=== PATIENT | male | born 1995 | race Caucasian/White ===

== ENCOUNTER 2017-10-02 16:29 | Emergency (ER) | payer OTHER ==
[2017-10-02 16:38] VITALS: BP 116/70
[2017-10-02] MEDS ORDERED: Al Hydrox/Mg Hydrox/Simet LIQ* 30 ML UDC PO ONE (16:59)
[2017-10-02] MEDS ORDERED: Lidocaine 2% VISCOUS* 15 ML UDC PO ONE (17:00)
--- NOTE | 2017-10-02 17:09 | UC ---
Cardiac HPI - HPI Summary HPI Summary: Pt c/o sudden onset of chest pain that ike after vomiting last night. Pt reports that yesterday that he drank a cup of coffee, then went and worked out, then ate a chicken submarine sandwich, had sudden onset of abdominal pain , so , he forced himself to vomit, then he states his abdomen and chest began to hurt worse. The pain is not reproducible, it is constant, worsens with position change, pain lessen while lying down. Denies,fever, chills, some nausea, no diarrhea, - History of Current Complaint Hx Obtained From: Patient Onset/Duration: Sudden Onset, Still Present Timing: Constant Initial Severity: Moderate Current Severity: Moderate Pain Intensity: 7 Chest Pain Location: Left Anterior Character: Dull/Aching, Tightness Aggravating Factor(s): Position, Movement, Deep Breaths Alleviating Factor(s): Nothing Associated Signs & Symptoms: Positive: Chest Pain - Risk Factors Pulmonary Embolism Risk Factors: Negative Cardiac Risk Factors: Negative Atrial Fibrillation: Negative TAD Risk Factors: Negative <Briseida Roy NP - Last Filed: 10/02/17 17:49> <Aimee Quiroga - Last Filed: 10/02/17 18:05> - History of Current Complaint Chief Complaint: UCChestPain Stated Complaint: CHEST PAIN Time Seen by Provider: 10/02/17 16:46 - Allergy/Home Medications Allergies/Adverse Reactions: Allergies Allergy/AdvReac Type Severity Reaction Status Date / Time No Known Allergies Allergy Verified 10/02/17 16:38 Home Medications: Home Medications NK [No Home Medications Reported] 10/02/17 [History Confirmed 10/02/17] PMH/Surg Hx/FS Hx/Imm Hx Previously Healthy: Yes Other History Of: Negative For: HIV, Hepatitis B, Hepatitis C - Surgical History Surgical History: Yes Surgery Procedure, Year, and Place: LEFT ELBOW FX 2009 [place]. RIGHT WRIST FX SURGERY - Family History Known Family History: Negative: Cardiac Disease, Hypertension - Social History Occupation: Employed Full-time Lives: With Family Alcohol Use: Occasionally Substance Use Type: None Smoking Status (MU): Never Smoked Tobacco Have You Smoked in the Last Year: No Household Exposure Type: Cigarettes <Briseida Roy NP - Last Filed: 10/02/17 17:49> Review of Systems Constitutional: Fatigue Skin: Negative Eyes: Negative ENT: Negative Respiratory: Negative Cardiovascular: Chest Pain Gastrointestinal: Abdominal Pain, Vomiting, Nausea Genitourinary: Negative Motor: Negative Neurovascular: Negative Musculoskeletal: Negative Neurological: Negative Psychological: Negative Is Patient Immunocompromised?: No All Other Systems Reviewed And Are Negative: Yes <Briseida Roy NP - Last Filed: 10/02/17 17:49> Physical Exam Triage Information Reviewed: Yes Appearance: Pain Distress Vital Signs: Initial Vital Signs Temp 98.1 F 10/02/17 16:34 Pulse 91 10/02/17 16:34 Resp 18 10/02/17 16:34 BP 116/70 10/02/17 16:34 Pulse Ox 99 10/02/17 16:34 Vital Signs Reviewed: Yes Eye Exam: Normal ENT Exam: Normal Dental Exam: Normal Neck exam: Normal Respiratory Exam: Normal Cardiovascular Exam: Normal Abdominal Exam: Other Abdomen Description: Positive: Other: - generalized tenderness, Musculoskeletal Exam: Normal Neurological Exam: Normal Psychological Exam: Normal Skin Exam: Normal <Briseida Roy NP - Last Filed: 10/02/17 17:49> Vital Signs: Initial Vital Signs Temp 98.1 F 10/02/17 16:34 Pulse 91 10/02/17 16:34 Resp 18 10/02/17 16:34 BP 116/70 10/02/17 16:34 Pulse Ox 99 10/02/17 16:34 <Aimee Quiroga - Last Filed: 10/02/17 18:05> - Assessment/Plan Course Of Treatment: Pt was given maalox and viscous lidcaine at clinic, pt stated that his pain in chest has resolved and pain in abdomen has improved. I disussed with the pt the need to eat regulary and maintain hydration. I also discussed with the pt that if his symptoms worsens to seek care immediately at the closest emergency room. - Differential Diagnoses - Chest Pain Differential Diagnosis/HQI/PQRI: ACS, Angina - Differential Diagnoses - Palpitations Differential Diagnosis/HQI/PQRI: Pericarditis - Clinical Impression Provider Diagnoses: chest pain. abdominal pain <Briseida Roy NP - Last Filed: 10/02/17 17:49> Discharge - Sign-Out/Discharge Documenting (check all that apply): Discharge/Admit/Transfer - Billing Disposition and Condition Condition: STABLE Disposition: HOME <Briseida Roy NP - Last Filed: 10/02/17 17:49> - Billing Disposition and Condition Condition: STABLE Disposition: HOME <Aimee Quiroga - Last Filed: 10/02/17 18:05> - Discharge Plan Condition: Stable Disposition: HOME Patient Education Materials: Antacid, Calcium Containing (By mouth), Chest Pain (ED), Abdominal Pain (ED) Referrals: [facility] [place] [facility] [Outside] No Primary Care Phys,NOPCP [Medical Doctor] - Attestation Statement User Type: Provider - I was available for consult. This patient was seen by the [facility]. The patient was not presented to, seen by, or examined by me. -Constance <Aimee Quiroga - Last Filed: 10/02/17 18:05>
== END 2017-10-02 17:52 | disposition home or self-care (01) ==
LOC: UCCORT 16:29
DX: R07.9 Chest pain, unspecified (principal); R10.9 Unspecified abdominal pain
CPT/HCPCS: 93005; 99212; A9270-GY; G0463

== ENCOUNTER 2018-06-15 13:46 | Emergency (ER) | payer OTHER ==
[2018-06-15 14:40] VITALS: BP 130/59
--- NOTE | 2018-06-15 14:44 | UC ---
Back Pain HPI - HPI Summary HPI Summary: 1. c/o low back pain x 1 month. he thinks it may be from being seated in his car to and from work for 3 hours daily then standing while at work. he denies hx of injury and states " I work out at the gym all the time". 2. "I dislocated my left pinky" on monday( 4 days ago) while playing basketball. He put it back in place but has ongoing pain, swelling and the finger looks crooked. also, finger continues to pop. - History of Current Complaint Chief Complaint: UCUpperExtremity Stated Complaint: LEFT SMALL FINGER INJURY/RIGHT LOWER BACK PAIN Time Seen by Provider: 06/15/18 14:34 Hx Obtained From: Patient Pain Intensity: 4 Associated Signs And Symptoms: Negative: Fever, Weakness, Numbness, Tingling, Abdominal Pain, Flank Pain, Bladder Incontinence, Bowel Incontinence - Risk Factors AAA Risk Factors: Negative TAD Risk Factors: Negative Cauda Equina Risk Factors: Negative - Allergies/Home Medications Allergies/Adverse Reactions: Allergies Allergy/AdvReac Type Severity Reaction Status Date / Time mold Allergy Congestion Verified 06/15/18 14:30 dust Allergy Congestion Uncoded 06/15/18 14:30 PMH/Surg Hx/FS Hx/Imm Hx Previously Healthy: Yes Other History Of: Negative For: HIV, Hepatitis B, Hepatitis C - Surgical History Surgical History: Yes Surgery Procedure, Year, and Place: LEFT ELBOW FX 2008 [place]. RIGHT WRIST FX SURGERY - Family History Known Family History: Negative: Cardiac Disease, Hypertension - Social History Occupation: Employed Full-time Alcohol Use: Occasionally Substance Use Type: None Smoking Status (MU): Never Smoked Tobacco Type: eCigarettes Have You Smoked in the Last Year: No Household Exposure Type: Cigarettes - Immunization History Vaccination Up to Date: Yes Review of Systems All Other Systems Reviewed And Are Negative: Yes Constitutional: Positive: Negative Skin: Positive: Negative Eyes: Positive: Negative ENT: Positive: Negative Respiratory: Positive: Negative Cardiovascular: Positive: Negative Gastrointestinal: Positive: Negative Genitourinary: Positive: Negative Neurological: Positive: Negative Psychological: Positive: Negative Is Patient Immunocompromised?: No Physical Exam Triage Information Reviewed: Yes Appearance: Well-Appearing Vital Signs: Initial Vital Signs Temp 97.5 F 06/15/18 14:25 Pulse 74 06/15/18 14:25 Resp 18 06/15/18 14:25 BP 130/59 06/15/18 14:25 Pulse Ox 99 06/15/18 14:25 Vital Signs Reviewed: Yes Eyes: Positive: Conjunctiva Clear ENT: Positive: Normal ENT inspection Neck: Positive: Supple, Nontender, No Lymphadenopathy Respiratory: Positive: Lungs clear, Normal breath sounds Cardiovascular: Positive: RRR, No Murmur Abdomen Description: Positive: Nontender, No Organomegaly, Soft. Negative: Distended, Guarding, Pulsatile Mass Bowel Sounds: Positive: Present Musculoskeletal: Positive: Other: - L hand: 5th finger with purple bruising and mild swelling plus tender with limited ROM. Gross s/v is intact. rest of hand atraummatic. Back: Tender over low lumbar region plus sacral junction. MM spasm L paraspinal MM lower lumbar region. Rest of back non tender and ROm intact throughout. 5/5 strength, 2+ reflexes and sensation intact x4. No saddle anesthesia. Steady gait. No rash or pilonidal cyst. Neurological: Positive: Alert Psychological: Positive: Age Appropriate Behavior Skin Exam: Normal Skin: Negative: Rashes Diagnostics - Radiology No standard instances Radiology Interpretation Completed By: Radiologist - hand=nad. lumbarsacral= mild scoliosis(see reports) Back Pain Course/Dx - Course Course Of Treatment: xray results d/w pt. he has seen Dr Chadwick in past and will f/u there - Differential Dx/Diagnosis Differential Diagnosis/HQI/PQRI: Other - Back: no concern for fx, dislocation, infection, cauda equina or acute abdomen. finger=no fx or dislocatiopn. Provider Diagnosis: Low back pain, Sprain of finger, left Discharge - Sign-Out/Discharge Documenting (check all that apply): Patient Departure All imaging exams completed and their final reports reviewed: Yes - Discharge Plan Condition: Stable Disposition: HOME Prescriptions: Cyclobenzaprine TAB* [Flexeril 10 MG TAB*] 10 mg PO TID PRN #10 tab PRN Reason: Pain - Back Naproxen [Naprosyn 500 mg tab] 500 mg PO BID 5 Days #10 tablet Patient Education Materials: Finger Sprain (ED), Back Pain (ED), Splint Care ( ED) Referrals: Hermann Eldridge MD [Medical Doctor] - 5 Days Additional Instructions: SPLINT ON FINGER UNTIL CLEARED. AVOID GYM/WORKING OUT UNTIL BACK IS BETTER. - Billing Disposition and Condition Condition: STABLE Disposition: Home
[2018-06-15] MEDS ORDERED: Ibuprofen ADULT LIQ* 600 MG/30 ML UDC PO ONE (14:47)
== END 2018-06-15 16:05 | disposition home or self-care (01) ==
LOC: UCCORT 13:46
DX: S60.052A Contusion of left little finger without damage to nail, initial encounter (principal); S63.617A Unspecified sprain of left little finger, initial encounter; M54.5 Low back pain; Z77.22 Contact with and (suspected) exposure to environmental tobacco smoke (acute) (chronic); Z91.09 Other allergy status, other than to drugs and biological substances; X50.9XXA Other and unspecified overexertion or strenuous movements or postures, initial encounter; Y93.67 Activity, basketball; Y92.9 Unspecified place or not applicable
CPT/HCPCS: 72110; 73140; 99212; A9270-GY; G0463

== ENCOUNTER 2018-08-13 15:56 | Emergency (ER) | payer OTHER ==
[2018-08-13 18:05] VITALS: BP 117/73
--- NOTE | 2018-08-13 18:27 | UC ---
Lower Extremity/Ankle HPI - HPI Summary HPI Summary: Patient stepped on a broken glass last evening. He is unsure as his last tetanus immunization. He states he doesn't feel like there is any foreign body in that foot that 8:00 last evening and patient states he did not seek treatment because he was tired.. - History of Current Complaint Chief Complaint: UCLowerExtremity Stated Complaint: RIGHT FOOT INJURY Time Seen by Provider: 08/13/18 18:19 Hx Obtained From: Patient Onset/Duration: Sudden Onset Severity Initially: Moderate Severity Currently: Mild Pain Intensity: 0 Aggravating Factor(s): Ambulation Alleviating Factor(s): Rest Able to Bear Weight: Yes - Allergies/Home Medications Allergies/Adverse Reactions: Allergies Allergy/AdvReac Type Severity Reaction Status Date / Time mold Allergy Congestion Verified 08/13/18 18:03 dust Allergy Congestion Uncoded 08/13/18 18:03 Home Medications: Home Medications NK [No Home Medications Reported] 08/13/18 [History Confirmed 08/13/18] PMH/Surg Hx/FS Hx/Imm Hx Previously Healthy: Yes Other History Of: Negative For: HIV, Hepatitis B, Hepatitis C - Surgical History Surgical History: Yes Surgery Procedure, Year, and Place: LEFT ELBOW FX 2008 [place]. RIGHT WRIST FX SURGERY - Family History Known Family History: Negative: Cardiac Disease, Hypertension - Social History Alcohol Use: Occasionally Substance Use Type: None Smoking Status (MU): Never Smoked Tobacco Type: eCigarettes Have You Smoked in the Last Year: No Household Exposure Type: Cigarettes - Immunization History Vaccination Up to Date: Yes Review of Systems All Other Systems Reviewed And Are Negative: Yes Skin: Positive: Other - Approximately 2.0 cm laceration at the base of the right great toe. No active bleeding. Physical Exam Triage Information Reviewed: Yes Appearance: Well-Appearing, No Pain Distress, Well-Nourished Vital Signs: Initial Vital Signs Temp 98.8 F 08/13/18 18:03 Pulse 69 08/13/18 18:03 Resp 16 08/13/18 18:03 BP 117/73 08/13/18 18:03 Pulse Ox 100 08/13/18 18:03 Vital Signs Reviewed: Yes Musculoskeletal Exam: Normal Musculoskeletal: Positive: Strength Intact, ROM Intact - Good peripheral pulses neuro sensation and capillary refill. Neurological Exam: Normal Neurological: Positive: Alert, Muscle Tone Normal Psychological Exam: Normal Skin: Positive: Other - Approximately 2.0 cm laceration at the base of the great toe. No active bleeding. Lower Extremity Course/Dx - Course Course Of Treatment: Has been comfortable here. The x-ray according to myself does not show any foreign body present. The wound itself is clean. A dry sterile bulky bacitracin dressing is applied. He's to watch for signs of infection which were reviewed with him. He may return here or follow-up with his primary care provider as needed. 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 - Differential Dx/Diagnosis Provider Diagnosis: Laceration of foot Discharge - Sign-Out/Discharge Documenting (check all that apply): Patient Departure All imaging exams completed and their final reports reviewed: No - Discharge Plan Condition: Good Disposition: HOME Patient Education Materials: Laceration (DC) Referrals: No Primary Care Phys,NOPCP [Primary Care Provider] - Additional Instructions: Please call [facility] at [phone] to get help establishing care with a primary care provider. At this point in time there is no foreign body or piece of glass visualized in her foot. Change dressing daily. Watch for signs of infection such as red streaks, pus drainage, swelling, fever, increased tenderness, increased pain. Definite follow-up with her primary care provider or return here if you have symptoms of infection. - Billing Disposition and Condition Condition: GOOD Disposition: Home
--- NOTE | 2018-08-14 08:21 | UC ---
- Progress Note Progress Note: xray report right foot: FINDINGS: There is a small soft tissue defect present medial to the proximal phalanx of the great toe. No radiopaque foreign body is seen. The bones are normal alignment. No fracture is seen. IMPRESSION: NO RADIOPAQUE FOREIGN BODY IS SEEN. Course/Dx - Diagnoses Provider Diagnoses: Laceration of foot Discharge - Sign-Out/Discharge Documenting (check all that apply): Patient Departure All imaging exams completed and their final reports reviewed: Yes - Discharge Plan Condition: Good Disposition: HOME Patient Education Materials: Laceration (DC) Forms: *Work Release Referrals: No Primary Care Phys,NOPCP [Primary Care Provider] - Additional Instructions: Please call [facility] at [phone] to get help establishing care with a primary care provider. At this point in time there is no foreign body or piece of glass visualized in her foot. Change dressing daily. Watch for signs of infection such as red streaks, pus drainage, swelling, fever, increased tenderness, increased pain. Definite follow-up with her primary care provider or return here if you have symptoms of infection. - Billing Disposition and Condition Condition: GOOD Disposition: Home
== END 2018-08-13 19:26 | disposition home or self-care (01) ==
LOC: UCCORT 15:56
DX: S91.311A Laceration without foreign body, right foot, initial encounter (principal); Z91.09 Other allergy status, other than to drugs and biological substances; W25.XXXA Contact with sharp glass, initial encounter; Y92.9 Unspecified place or not applicable
CPT/HCPCS: 99212; G0463

== ENCOUNTER 2019-01-22 15:23 | Emergency (ER) | payer OTHER ==
[2019-01-22 15:47] VITALS: BP 119/81
--- NOTE | 2019-01-22 16:07 | ED ---
Back Pain - HPI Summary HPI Summary: 23 yr old male with the complaint of low back pain. Onset 6-7 month ago. He states he had plain films that showed scoliosis, was referred for PT and has been doing the PT but his back is hurting more, and he is getting pain down the right lateral and posterior leg now. He denies bowel or bladder incontinence. He has pain that is 6/10 in low back. No numbness or weakness in the legs. He has no falls or injuries otherwise. he denies having any acute problems with his wrists today. - History of Current Complaint Chief Complaint: UCBackPain Stated Complaint: BACK PAIN Time Seen by Provider: 01/22/19 15:52 Pain Intensity: 7 - Allergies/Home Medications Allergies/Adverse Reactions: Allergies Allergy/AdvReac Type Severity Reaction Status Date / Time mold Allergy Congestion Verified 08/13/18 18:03 dust Allergy Congestion Uncoded 08/13/18 18:03 PMH/Surg Hx/FS Hx/Imm Hx Endocrine/Hematology History: Denies: Hx Diabetes, Hx Thyroid Disease Cardiovascular History: Denies: Hx Congestive Heart Failure, Hx Deep Vein Thrombosis, Hx Hypertension , Hx Myocardial Infarction, Hx Pacemaker/ICD Respiratory History: Denies: Hx Asthma, Hx Chronic Obstructive Pulmonary Disease (COPD), Hx Lung Cancer, Hx Pneumonia, Hx Pulmonary Embolism GI History: Denies: Hx Gall Bladder Disease, Hx Gastrointestinal Bleed, Hx Ulcer, Hx Urosepsis History: Denies: Hx Kidney Stones, Hx Renal Disease Sensory History: Reports: Hx Contacts or Glasses - BOTH Denies: Hx Hearing Aid Opthamlomology History: Reports: Hx Contacts or Glasses - BOTH Neurological History: Denies: Hx Dementia, Hx Migraine, Hx Seizures, Hx Transient Ischemic Attacks (TIA) Psychiatric History: Denies: Hx Anxiety, Hx Depression, Hx Schizophrenia, Hx Bipolar Disorder - Surgical History Surgery Procedure, Year, and Place: LEFT ELBOW FX 2008 [place]. RIGHT WRIST FX SURGERY Hx Anesthesia Reactions: No Infectious Disease History: No Infectious Disease History: Denies: Hx Clostridium Difficile, Hx Hepatitis, Hx Human Immunodeficiency Virus (HIV), Hx of Known/Suspected MRSA, Hx Shingles, Hx Tuberculosis, Hx Known/ Suspected VRE, Hx Known/Suspected VRSA, History Other Infectious Disease, Traveled Outside the [place] in Last 30 Days - Family History Known Family History: Negative: Cardiac Disease, Hypertension - Social History Occupation: Employed Full-time Alcohol Use: Occasionally Substance Use Type: Reports: None Smoking Status (MU): Never Smoked Tobacco Type: eCigarettes Length of Time of Smoking/Using Tobacco: 1-2 years Have You Smoked in the Last Year: No Review of Systems Constitutional: Negative Positive: Other - back pain All Other Systems Reviewed And Are Negative: Yes Physical Exam Triage Information Reviewed: Yes Vital Signs On Initial Exam: Initial Vitals Temp Pulse Resp BP Pulse Ox 97.4 F 68 18 119/81 98 01/22/19 15:38 01/22/19 15:38 01/22/19 15:38 01/22/19 15:38 01/22/19 15:38 Vital Signs Reviewed: Yes Appearance: Positive: Well-Appearing, No Pain Distress Skin: Positive: Warm, Skin Color Reflects Adequate Perfusion Head/Face: Positive: Normal Head/Face Inspection Eyes: Positive: EOMI ENT: Positive: Normal ENT inspection Neck: Positive: Supple, Nontender Respiratory/Lung Sounds: Positive: Clear to Auscultation, Breath Sounds Present Cardiovascular: Positive: RRR. Negative: Murmur Abdomen Description: Positive: Nontender Musculoskeletal: Positive: Other - no focal midline lumbar sacral tenderness. No STS. Neurological: Positive: Sensory/Motor Intact, Alert, Oriented to Person Place, Time, CN Intact II-III, Normal Gait, Speech Normal Psychiatric: Positive: Normal Diagnostics - Vital Signs Vital Signs Temp Pulse Resp BP Pulse Ox 01/22/19 15:38 97.4 F 68 18 119/81 98 - Laboratory Lab Statement: Any lab studies that have been ordered have been reviewed, and results considered in the medical decision making process. Back Pain Course/Dx - Course Course Of Treatment: 23 yr old with low back pain, and radicular symptoms. He was offered an ambulance to go to the ER for further work up of his pain, but states he will drive himself for further work up. It was discussed that at this point he will need MRI to further identify the pathology in his spine causing the radicular pain. - Diagnoses Provider Diagnoses: Lumbar back pain with radiculopathy affecting right lower extremity Discharge ED - Sign-Out/Discharge Documenting (check all that apply): Patient Departure All imaging exams completed and their final reports reviewed: No Studies - Discharge Plan Condition: Good Disposition: HOME-RECOMMEND TO ED Patient Education Materials: Back Pain (ED) Referrals: [facility] [place] [facility] [Outside] - 2 Days No Primary Care Phys,NOPCP [Primary Care Provider] - Additional Instructions: It is recommended you go to the ER now for further work up of your back pain, and pain down your right leg. You may need MRI to evaluate your discs and nerves and spinal cord in the back. Do not delay going. You have been offered an ambulance but you state you are going to drive yourself. - Billing Disposition and Condition Condition: GOOD Disposition: Home-Recommend to ED
== END 2019-01-22 16:05 | disposition home health service (06) ==
LOC: UCCORT 15:23
DX: M54.16 Radiculopathy, lumbar region (principal); M41.9 Scoliosis, unspecified; F17.290 Nicotine dependence, other tobacco product, uncomplicated
CPT/HCPCS: 99212; G0463